=== PATIENT | female | born 1945 | race African-American/Black ===

== ENCOUNTER 2016-07-30 10:33 | Emergency (ER) | payer MEDICARE, BC ==
[2016-07-30] MEDS ORDERED: Sodium Chloride 0.9% 1,000 ML ONE (11:08)
--- NOTE | 2016-07-30 11:12 | PICIS ---
[facility] EMERGENCY RECORD ADMIN MERGE: Ambulance SatJul 30, 2016 10:29. (11:23 REZE) TRIAGE (10:37 GHIA) TRIAGE NOTES: Pt "felt like sugar was low...so took OJ and added sugar"...gluc 264 by EMs. (10:37 GHIA) PATIENT: NAME: Pradip Giraldo, AGE: 71, GENDER: female, : Sat1945, TIME OF GREET: SatJul 30, 2016 10:34, PREFERRED LANGUAGE: Eritrean, ETHNICITY: Not or , ECODE BILLING MAP: [facility], SSN: [id number], Zip Code: [address], PHONE: , , , PERSON ID: [id number]. (10:37 GHIA) KG WEIGHT: 77.11. (15:18 GHIA) COMPLAINT: WEAKNESS/SWEATING. (10:37 GHIA) ADMISSION: URGENCY: 3 Urgent, ADMISSION SOURCE: Home, TRANSPORT: AMBULANCE - [facility], BED: TRIAGE. (10:37 GHIA) ASSESSMENT: Assessment: Pt felt BS was low....pt took OJ with added sugar before EMS arrived...gluc 264. (10:46 GHIA) PAIN: Patient complains of pain described as, Location center abd, Pain is constant. (10:46 GHIA) IMMUNIZATIONS: Flu vaccine up to date, Tetanus not up to date, Pneumococcal vaccine up to date. (10:46 GHIA) SIRS SCORING: Heart Rate 55-109 (0), Temp range 96.8-101.1 (0), respiratory rate 12-24 (0). (10:46 GHIA) TRIAGE SCREENING: Patient denies suicidal ideation, Patient denies presence of domestic violence. (10:46 GHIA) LMP: LMP: Menopause. (10:46 GHIA) TREATMENTS IN PROGRESS: See EMS Record, Treatments given Prehospital: no meds by EMS. (10:46 GHIA) PROVIDERS: TRIAGE NURSE: Saadia Garrett RN. (10:37 GHIA) VITAL SIGNS: BP 159/73, Pulse 73, Resp 17, Temp 98.0, (Oral), Pain 5, O2 Sat 98, on Room Air, Time 07/30/2016 10:38. (10:38 GHIA) PREVIOUS VISIT ALLERGIES: No Known Drug Allergies. (10:37 GHIA) No Known Drug Allergies. (10:46 GHIA) KNOWN ALLERGIES No Known Drug Allergies CURRENT MEDICATIONS No recorded medications VITAL SIGNS VITAL SIGNS: BP: 159/73, Pulse: 73, Resp: 17, Temp: 98.0 (Oral), Pain: 5, O2 sat: 98 on Room Air, Time: 07/30/2016 10:38. (10:38 GHIA) BP: 138/51, Pulse: 78, Resp: 18, Pain: 5, O2 sat: 93 on RA, Time: 07/30/2016 10:52. (10:52 GHIA) O2 sat: 87 on RA, Time: 07/30/2016 10:50. (10:50 GHIA) O2 sat: 89 on 4LNC, Time: 07/30/2016 11:10. (11:10 GHIA) O2 sat: 93 on NRM, Time: 07/30/2016 11:33. (11:33 GHIA) BP: 148/67, Pulse: 79, Resp: 17, Pain: 0, O2 sat: 95 on 4LNC, Time: &a-1R&a+25V*p+0X*j1423F*c202B*c15G*c2P*p-0X&a-25V&a+1R Name: Pradip Giraldo : 1945 F71 MedRec: [id number] AcctNum: [id number] Prepared: SatJul 30, 2016 17:18 by Interface Page 1 of 11 pMD [facility] EMERGENCY RECORD 07/30/2016 11:44. (11:44 GHIA) Pulse: 80, Resp: 18, Pain: 0, O2 sat: 95 on 4LNC, Time: 07/30/2016 11:57. (11:57 GHIA) BP: 156/74, Pulse: 86, Resp: 18, Pain: 0, O2 sat: 94 on Room Air, Time: 07/30/2016 16:00. (16:00 GHIA) BP: 159/75, Pulse: 83, Resp: 17, Pain: 0, O2 sat: 94 on Room Air, Time: 07/30/2016 15:00. (15:00 GHIA) BP: 149/70, Pulse: 86, Resp: 17, Pain: 0, O2 sat: 97 on Room Air, Time: 07/30/2016 14:00. (14:00 GHIA) BP: 161/72, Pulse: 84, Resp: 18, Pain: 0, O2 sat: 98 on Room Air, Time: 07/30/2016 13:00. (13:00 GHIA) BP: 148/75, Pulse: 84, Resp: 18, Temp: 98.4, Pain: .0, O2 sat: 95 on 4LNC, Time: 07/30/2016 16:45. (16:45 GHIA) NURSING ASSESSMENT: HEAD-TO-TOE (10:47 GHIA) CONSTITUTIONAL: Patient arrives, via stretcher, via Emergency Medical Services, History obtained from patient, Patient appears comfortable, Patient cooperative, Patient alert, Oriented to person, place and time, Skin warm, Skin dry, Skin normal in color, Mucous membranes pink, Mucous membranes moist, Patient is well-groomed, Patient complains of Weakness/sweating, Pt in room in bed in gown. Assess. Plan of care of pt in ER discussed. PAIN: aching pain, all over abd "just feels like I need to have BM, Onset of pain one hour ago, constant, on a scale 0-10 patient rates pain as 5. SKIN: Skin assessment findings include skin warm, Skin dry, Skin normal in color, Notes: intact. RESPIRATORY/CHEST: Respiratory assessment findings include respiratory effort easy. CARDIOVASCULAR: Cardiovascular assessment findings include heart rate normal. ABDOMEN: Abdomen assessment findings include abdomen symmetrical, no associated nausea, no associated vomiting, no associated diarrhea, no associated constipation. GENITOURINARY FEMALE: no associated urinary complaints. NOTES: Emotional support needed and given, Patient tolerated procedure well. SAFETY: Side rails up, Cart/Stretcher in lowest position, Family at bedside, Call light within reach, Hospital ID band on. NURSING PROCEDURE: BEDSIDE TESTING PATIENT IDENTIFIER: Patient actively involved in identification process, Patient's identity verified by patient stating name, Patient's identity verified by hospital ID brapeeweeet. (10:45 GHIA) Patient actively involved in identification process, Patient's identity verified by patient stating name, Patient's identity verified by hospital ID bracelet. (16:20 GHIA) GLUCOSE: Glucose testing indicated for diabetic patient, Capillary blood sample, Result (mg/dl) 245. (10:45 GHIA) Glucose testing indicated for diabetic patient, Capillary blood sample, &a-1R&a+25V*p+0X*y9602B*c202B*c15G*c2P*p-0X&a-25V&a+1R Name: Pradip Giraldo : 1945 F71 MedRec: [id number] AcctNum: [id number] Prepared: SatJul 30, 2016 17:18 by Interface Page 2 of 11 pMD [facility] EMERGENCY RECORD Result (mg/dl) 289. (16:20 GHIA) FOLLOW-UP: After procedure, results given to Dr. Lam. (10:45 GHIA) SAFETY: Side rails up, Cart/Stretcher in lowest position, Family at bedside, Call light within reach, Hospital ID band on. (10:45 GHIA) Side rails up, Cart/Stretcher in lowest position, Family at bedside, Call light within reach, Hospital ID band on. (16:20 GHIA) NURSING PROCEDURE: ANY COMMODITY BUYER (11:07 [facility]) ANY COMMODITY BUYER: Cardiac monitoring indicated for mental status changes, Patient placed on quality assurance monitor body, Patient placed on non-invasive blood pressure monitor, Patient placed on continuous pulse oximetry. FOLLOW-UP: After procedure, alarms set and on, After procedure, patient tolerating monitoring. SAFETY: Side rails up, Cart/Stretcher in lowest position, Family at bedside, Call light within reach, Hospital ID band on. NURSING PROCEDURE: NURSE NOTES NURSES NOTES: Notes: Er Dr at bedside. (10:52 GHIA) Notes: coworker attempting Iv. (11:10 GHIA) Notes: SAt down O2 applied. (10:50 GHIA) Notes: Sat still low O2 changed to non rebreather. (11:10 GHIA) Notes: Er Dr at bedside ; Dr aware of low O2 sat. (11:33 GHIA) Patient in no apparent distress, Assistance offered to patient, Patient is awaiting results, Notes: Pt resting ; no c/o. So x 1 at bedside. (11:44 GHIA) Patient in no apparent distress, Assistance offered to patient, Patient is awaiting results. (11:57 GHIA) Notes: pt and So notified of need to transfer pt Pt and So request to go to [facility] 'where my Dr is at'. house Sup notified (Maribeth). (12:51 GHIA) Patient in no apparent distress, Assistance offered to patient, Patient is awaiting disposition, Notes: Pt cheerful. Munir Stahl working on paperwork. (14:00 GHIA) Patient in no apparent distress, Assistance offered to patient, Patient is awaiting disposition, Notes: No c/o. Maribeth Rn working on discharge. (15:08 GHIA) Notes: Pt states she only weighs 170lbs....lovenox dose verified with Shyanne KUMAR prior to giving to pt. (15:18 GHIA) Patient in no apparent distress, Assistance offered to patient, Patient is awaiting results, Notes: Time spent talking with pt and answering questions. (15:25 GHIA) Patient in no apparent distress, Assistance offered to patient, Patient is awaiting disposition, Notes: Glucose checked = 289. Pt alert and appropriate...waiting on transport. (16:21 GHIA) Notes: EMS here for transport; Report given to [facility] staff. (16:40 GHIA) VITAL SIGNS: BP: 138, / 51, Pulse: 78, Resp: 18, Pain: 5, O2 sat: &a-1R&a+25V*p+0X*k8179C*c202B*c15G*c2P*p-0X&a-25V&a+1R Name: Pradip Giraldo : 1945 F71 MedRec: [id number] AcctNum: [id number] Prepared: SatJul 30, 2016 17:18 by Interface Page 3 of 11 pMD [facility] EMERGENCY RECORD 93, on: RA. (10:52 GHIA) O2 sat: 87, on: RA. (10:50 GHIA) O2 sat: 89, on: 4LNC. (11:10 GHIA) O2 sat: 93, on: NRM. (11:33 GHIA) BP: 148, / 67, Pulse: 79, Resp: 17, Pain: 0, O2 sat: 95, on: 4LNC. (11:44 GHIA) Pulse: 80, Resp: 18, Pain: 0, O2 sat: 95, on: 4LNC. (11:57 GHIA) NURSING PROCEDURE: TRANSFER (16:45 GHIA) TRANSFER: Reason for transfer, insurance/pt request, Diagnosis: PE, Transported by urgent ambulance, accompanied by emergency medical services personnel, Report called to receiving facility, Anna KUMAR, Provided opportunity to answer questions, Report given with emphasis on pts correct weight of 77 kg and lovenox given at 1524. BELONGINGS: Belongings remain with patient, Valuables remain with patient. NOTES: Patient tolerated procedure well. SAFETY: Notes: Pt alert and cheerful. Pt refuses to urinate before transport. VITAL SIGNS: BP: 148, / 75, Pulse: 84, Resp: 18, Temp: 98.4, Pain: .0, O2 sat: 95, on: 4LNC. ORDER DETAILS Order Name: B type Natriuretic Peptide, Status: Active, Time: 11:00 07/30/2016, User: MONI, - Ordered for: MD Lam Joshua, - Entered by: MD Lam Joshua - [facility] Jul 30, 2016 11:00, - Quantity: 1, Order Name: BLOOD GLUCOSE MONITOR, Status: Done, Time: 10:55 07/30/2016, User: SABRINA, - Ordered for: MD Lam Joshua, - Entered by: STACY Garrett Geraldine - [facility] Jul 30, 2016 10:55, - Quantity: 1, Order Name: ANY COMMODITY BUYER ED, Status: Done, Time: 11:06 07/30/2016, User: [facility], - Ordered for: MD Lam Joshua, - Entered by: MD Lam Joshua - [facility] Jul 30, 2016 11:00, - Quantity: 1, Order Name: Cardiac Profile w/CKMB & Troponin - I, Status: Active, Time: 11:00 07/30/2016, User: MONI, - Ordered for: MD Lam Joshua, - Entered by: MD Lam Joshua - [facility] Jul 30, 2016 11:00, - Quantity: 1, Order Name: CBC with Differential, Status: Active, Time: 11:00 07/30/2016, User: MONI, - Ordered for: MD Lam Joshua, - Entered by: MD Lam Joshua - [facility] Jul 30, 2016 11:00, - Quantity: 1, &a-1R&a+25V*p+0X*c1778K*c202B*c15G*c2P*p-0X&a-25V&a+1R Name: Pradip Giraldo : 1945 F71 MedRec: [id number] AcctNum: [id number] Prepared: SatJul 30, 2016 17:18 by Interface Page 4 of 11 [facility] EMERGENCY RECORD Order Name: CK (CPK), Status: Active, Time: 11:00 07/30/2016, User: MONI, - Ordered for: MD Lam Joshua, - Entered by: MD Lam Joshua - [facility] Jul 30, 2016 11:00, - Quantity: 1, Order Name: Comprehensive Metabolic Panel, Status: Active, Time: 11:00 07/30/2016, User: MONI, - Ordered for: MD Lam Joshua, - Entered by: MD Lam Joshua - [facility] Jul 30, 2016 11:00, - Quantity: 1, Order Name: CTA Angio Chest W WO Con(PE Protocol), Status: Canceled, Time: 12:55 07/30/2016, User: System, - Ordered for: MD Lam Joshua, - Entered by: MD Lam Joshua - [facility] Jul 30, 2016 12:18, - Quantity: 1, Order Name: D-Dimer (Quantitative), Status: Active, Time: 11:05 07/30/2016, User: MONI, - Ordered for: MD Lam Joshua, - Entered by: MD Lam Joshua - [facility] Jul 30, 2016 11:05, - Quantity: 1, Order Name: EKG 12 Lead in Emergency Room, Status: Active, Time: 11:00 07/30/2016, User: MONI, - Ordered for: MD Lam Joshua, - Entered by: MD Lam Joshua - [facility] Jul 30, 2016 11:00, - Quantity: 1, Order Name: Lipase, Status: Active, Time: 11:00 07/30/2016, User: MONI, - Ordered for: MD Lam Joshua, - Entered by: MD Lam Joshua - Mon Jul 30, 2016 11:00, - Quantity: 1, Order Name: SALINE LOCK, Status: Done, Time: 11:24 07/30/2016, User: SBARINA, - Ordered for: MD Lam Joshua, - Entered by: MD Lam Joshua - [facility] Jul 30, 2016 11:00, - Quantity: 1, Order Name: Urinalysis w/ Rflx Microscopic, Status: Active, Time: 11:00 07/30/2016, User: MONI, - Ordered for: MD Lam Joshua, - Entered by: MD Lam Joshua - Mon Jul 30, 2016 11:00, - Quantity: 1, Order Name: XR Chest 1 View Portable, Status: Active, Time: 11:00 07/30/2016, User: MONI, - Ordered for: MD Lam Joshua, - Entered by: MD Lam Joshua - Mon Jul 30, 2016 11:00, - Quantity: 1. MEDICATION ADMINISTRATION SUMMARY Drug Name: Lovenox, Dose Ordered: 1 mg/kg, Route: Subcutaneous, Status: Given, Time: 15:24 07/30/2016, Drug Name: *sodium chloride 0.9 % intravenous, Dose Ordered: 500 mL, &a-1R&a+25V*p+0X*n7787Q*c202B*c15G*c2P*p-0X&a-25V&a+1R Name: Enzo Pradip Avery : 1945 F71 MedRec: [id number] AcctNum: [id number] Prepared: SatJul 30, 2016 17:18 by Interface Page 5 of 11 pMD [facility] EMERGENCY RECORD Route: IV Fluid Infusion, Status: Given, Time: 11:31 07/30/2016, *Additional information available in notes, Detailed record available in Medication Service section. MEDICATION SERVICE Lovenox: Order: Lovenox (enoxaparin sodium) - Dose: 1 mg/kg : Subcutaneous Ordered by: Tony Lam MD Entered by: Tony Lam MD SatJul 30, 2016 15:01 , Acknowledged by: Saadia Garrett RN SatJul 30, 2016 15:08 Documented as given by: Saadia Garrett RN SatJul 30, 2016 15:24 Patient, Medication, Dose, Route and Time verified prior to administration. Amount given: 1 mg/kg, Medication administered to left abdomen, Correct patient, time, route, dose and medication confirmed prior to administration, Patient advised of actions and side-effects prior to administration, Allergies confirmed and medications reviewed prior to administration, Emotional support needed and given, Patient tolerated procedure well, Advised not to ambulate without assistance, Patient in position of comfort, Side rails up, Cart in lowest position, Family at bedside, Call light in reach, dose verified with Shyanne KUMAR prior to med given. sodium chloride 0.9 % intravenous: Order: sodium chloride 0.9 % intravenous (0.9 % sodium chloride) - Dose: 500 mL : IV Fluid Infusion Notes: (Bolus) Ordered by: Tony Lam MD Entered by: Tony Lam MD SatJul 30, 2016 11:01 Documented as given by: Shyanne Cao RN SatJul 30, 2016 11:31 Patient, Medication, Dose, Route and Time verified prior to administration. Amount given: 500 mL, IV SITE #1 IV fluids established for hydration, IV SITE #1 into right forearm, IV SITE #1 1st bag hung, amount 500ml hung, via primary tubing, Catheter placement confirmed via flush prior to administration, IV site without signs or symptoms of infiltration during medication administration, No swelling during administration, No drainage during administration, IV flushed after administration, Correct patient, time, route, dose and medication confirmed prior to administration, Patient advised of actions and side-effects prior to administration, Allergies confirmed and medications reviewed prior to administration, Patient tolerated procedure well, Administered by STACY Kimble, Patient in position of comfort, Side rails up, Cart in lowest position, Family at bedside, Call light in reach. : Follow Up : Response assessment performed, No signs or symptoms of allergic reaction noted, Site inspection shows, No swelling at administration site, No drainage at administration site, No bleeding at site, No bruising noted at site, _IV SITE #1:_, IV fluid infusion discontinued, on SatJul 30, 2016 12:00, 30 minutes, ., Total amount infused: 500 mL. (12:00 [facility]) &a-1R&a+25V*p+0X*n8421C*c202B*c15G*c2P*p-0X&a-25V&a+1R Name: Pradip Giraldo : 1945 F71 MedRec: [id number] AcctNum: [id number] Prepared: SatJul 30, 2016 17:18 by Interface Page 6 of 11 pMD [facility] EMERGENCY RECORD HPI WEAK-DIZZY (11:01 SUBHA) CHIEF COMPLAINT: Patient presents for evaluation of weakness, Patient presents for evaluation of dizziness, Patient presents for evaluation of lightheadedness, Patient presents for evaluation of Pt with onset of weakness, dizziness, and feeling like she might pass out. Pt reports it felt like her sugar was low so she ate some sugar and then ate some crackers. Only slight help so called the ambulance. Started 2 hours ago. EMS checked her glucose and it was 264. Only other symptoms is some abd fullness 'like I need to have a BM'. HISTORIAN: History provided by patient. LOCATION: No localizing symptoms. QUALITY: Symptoms described as, generalized weakness, Patient is alert and oriented to person, place and time, [place] coma score is 15. TIME COURSE: Sudden onset of symptoms, Symptoms are improving, are constant. ASSOCIATED WITH: No associated ataxia, No associated chest pain, No associated chills, No associated fever, No associated headache, No associated nausea, No associated vomiting, No associated visual changes, No associated upper respiratory infection. EXACERBATED BY: Patient's condition exacerbated by nothing. RELIEVED BY: Patient's condition relieved by time. ROS (11:03 [facility]) CONSTITUTIONAL: Historian denies chills, denies fever. EYES: Historian denies eye pain, denies eye redness, denies eye discharge. ENT: Historian denies rhinorrhea, denies sore throat. CARDIOVASCULAR: Historian denies chest pain. RESPIRATORY: Historian denies cough, denies shortness of breath, denies sputum. GI: Historian denies abdominal pain, denies constipation, denies diarrhea, denies nausea, denies vomiting. GENITOURINARY FEMALE: Historian denies dysuria, denies frequency, denies hematuria. MUSCULOSKELETAL: Historian denies arthralgias, denies back pain, denies myalgias. SKIN: Historian denies rash, denies skin changes. NEUROLOGIC: Historian reports dizziness, denies headache, denies paralysis, denies paresthesias, denies sensory changes. improved. PAST MEDICAL HISTORY MEDICAL HISTORY: Notes: as lsited, Flu vaccine up to date, Tetanus not up to date, Pneumococcal vaccine up to date, Date of immunization: 06/24/13, Flu vaccine up to date, Tetanus not up to date, Past medical history includes history of diabetes, Type II, Past medical history includes history of hypertension. Gout, Arthritis. (10:46 [facility]) &a-1R&a+25V*p+0X*b4569W*c202B*c15G*c2P*p-0X&a-25V&a+1R Name: Pradip Giraldo : 1945 F71 MedRec: [id number] AcctNum: [id number] Prepared: SatJul 30, 2016 17:18 by Interface Page 7 of 11 [facility] EMERGENCY RECORD FEMALE SURGICAL HISTORY: Patient has no surgical history, Patient has no surgical history. (10:46 [facility]) PSYCHIATRIC HISTORY: No previous psychiatric history. (10:46 [place]) SOCIAL HISTORY: Social History includes lives alone, Patient denies alcohol use, Patient denies drug use, Patient has no smoking history. (10:46 [facility]) NOTES: Nursing records reviewed, Agree with nursing records. (11:04 [facility]) PHYSICAL EXAM (11:04 [facility]) CONSTITUTIONAL: Vital signs reviewed, Patient appears non toxic, Patient alert and oriented to person, place and time. HEAD: Head exam included findings of head atraumatic, normocephalic. EYES: Eye exam included findings of eyelids normal to inspection, Pupils equally round and reactive to light, Conjunctiva normal. ENT: Pharynx exam normal, Uvula exam normal, Tonsil exam normal, Mouth exam included findings of, mucous membranes dry. NECK: Neck exam included findings of normal range of motion, Trachea midline, no jugular venous distention, no cervical adenopathy. RESPIRATORY CHEST: Respiratory exam included findings of no respiratory distress, Breath sounds clear, No wheezing, No rales, No rhonchi, Chest exam included findings of chest movement symmetrical. CARDIOVASCULAR: Cardiovascular exam included findings of heart rate regular rate and rhythm, Heart sounds normal. ABDOMEN FEMALE: Abdominal exam included findings of abdomen nontender, Bowel sounds normal. BACK: Back exam included findings of normal inspection, range of motion normal. UPPER EXTREMITY: Upper extremity exam included findings of inspection normal, Radial pulse normal, no cyanosis, no clubbing, no edema. LOWER EXTREMITY: Lower extremity exam included findings of inspection normal, Pedal pulse normal, no edema, no calf tenderness. NEURO: [place] coma scale 15, Neuro exam findings include patient oriented to person, place and time, Speech normal. SKIN: Skin exam included findings of skin warm, dry, and normal in color, no rash. PSYCHIATRIC: Normal affect. EVENTS TRANSFER: Triage to Emergency Triage. (SatJul 30, 2016 10:37 [place]) Emergency Triage to Emergency Room -02. (10:46 IA) Removed from Emergency Emergency Room -02. (17:03 [place]) DOCTOR NOTES (16:06 [facility]) TEXT: Dr. Arreguin accepted the transfer to [facility] [employer] &a-1R&a+25V*p+0X*e6771C*c202B*c15G*c2P*p-0X&a-25V&a+1R Name: Pradip Giraldo : 1945 F71 MedRec: [id number] AcctNum: [id number] Prepared: SatJul 30, 2016 17:18 by Interface Page 8 of 11 [facility] EMERGENCY RECORD Station. PROBLEM LIST No recorded problems DIAGNOSIS (16:07 [facility]) FINAL: PRIMARY: Pulmonary embolism (PE) without cor pulmonale. DISPOSITION PATIENT: Disposition Type: Transfer, Disposition: [employer]. (16:07 [facility]) Patient left the department. (17:03 [place]) PRESCRIPTION No recorded prescriptions IMAGING *EKG: Image captured from scanner. (12:24 REZE) *MEMORANDUM OF TRANSFER: Image captured from scanner. (16:27 REZE) CONSENTS: Image captured from scanner. (16:27 REZE) ADMIN DIGITAL SIGNATURE: MD Lam Joshua. (11:05 [facility]) MD Lam Joshua. (16:08 [facility]) RESULTS (14:35 RE) RADIOLOGY: XR Chest 1 View Portable Observe DT: SatJul 30, 2016 11:02, CXRP PORTABLE AP CHEST XRAY: DATE: 07/30/16. HISTORY: Altered mental status. COMPARISON: 04/24/13. FINDINGS: The cardiac silhouette and bronchovascular markings are accentuated by the shallow depth of inspirat ion and portable technique of the exam. The lungs are clear. There has been no interval change fro m the prior exam. IMPRESSION: No acute cardiopulmonary process. &a-1R&a+25V*p+0X*l6721O*c202B*c15G*c2P*p-0X&a-25V&a+1R Name: Pradip Giraldo : 1945 F71 MedRec: [id number] AcctNum: [id number] Prepared: SatJul 30, 2016 17:18 by Interface Page 9 of 11 pMD [facility] EMERGENCY RECORD POS: [facility] . LABORATORY: Lipase Collection DT: SatJul 30, 2016 11:32, *Lipase 86 - H U/L, Range (8-78). CK (CPK) Collection DT: SatJul 30, 2016 11:32, *CK (CPK) 292 - H U/L, Range (29-168). Comprehensive Metabolic Panel Collection DT: SatJul 30, 2016 11:32, *Sodium 135 - L mmol/L, Range (136-145), Potassium 4.0 mmol/L, Range (3.5-5.1), Chloride 99 mmol/L, Range (98-107), *Carbon Dioxide 21 - L mmol/L, Range (23-31), Anion Gap 19 mmol/L, Range (10-20), *BUN (Urea Nitrogen) 31 - H mg/dL, Range (9.8-20.1), *Creatinine 1.79 - H mg/dL, Range (0.6-1.1), Estimated GFR-MDRD 34 , Reference Range for Estimated GFR: Greater than 90, mL/min/1.73 m2 NOTE: The MDRD equation has not been validated for use, with the elderly (over 70 years of age), women, patients with, serious comorbid condition or persons with extremes of body size, muscle, mass, or nutritional status. , *Glucose 301 - H mg/dL, Range (83-110), Calcium 9.4 mg/dL, Range (7.8-10.44), Bilirubin, Total 0.3 mg/dL, Range (0.2-1.2), *Protein, Total 8.3 - H g/dL, Range (5.8-8.1), NOTE: Plasma values are generally 0.3 to 0.5 g/dL higher than serum values, due to the presence of fibrinogen. , *Albumin 3.2 - L g/dL, Range (3.4-4.8), *Globulin 5.1 - H g/dL, Range (2.4-3.5), *Alb/Glob Ratio 0.6 - L g/dL, Range (1.2-2.2), Alkaline Phosphatase 67 U/L, Range (40-150), AST (SGOT) 28 U/L, Range (5-34), ALT (SGPT) 19 U/L, Range (0-55). D-Dimer (Quantitative) Collection DT: SatJul 30, 2016 11:32, *D-Dimer Test 16.81 - H *mcg/mL, Range (0.27-0.43), * Reference Range Units: mcg/mL of fibrinogen equivalent, units(FEU) Based upon a retrospective study of [facility] patients in October 2005, a result of Less than 0.44 mcg/mL FEU is, predictive of the absence of a DVT or PE. . Cardiac Profile w/CKMB & TropI Collection DT: SatJul 30, 2016 11:32, CKMB 3.3 ng/mL, Range (0-6.6), *Troponin I 0.118 - H ng/mL, Range (< 0.028), Reference Range &a-1R&a+25V*p+0X*[id number]*c202B*c15G*c2P*p-0X&a-25V&a+1R Name: Pradip Giraldo : 1945 F71 MedRec: [id number] AcctNum: [id number] Prepared: SatJul 30, 2016 17:18 by Interface Page 10 of 11 pMD [facility] EMERGENCY RECORD , 0.00 - 0.028 ng/mL Negative 0.029 - 0.29 ng/mL , Indeterminate Greater or Equal to 0.3 ng/mL Strongly suggests [place] , . B type Natriuretic Peptide Collection DT: SatJul 30, 2016 11:32, B type Natriuretic Peptide 37.7 pg/mL, Range (0-100). CBC with Differential Collection DT: SatJul 30, 2016 11:32, White Blood Cell (WBC) Count 8.0 thou/uL, Range (4.8-10.8), Red Blood Cell (RBC) Count 4.94 mill/uL, Range (4.20-5.40), Hemoglobin 13.3 g/dL, Range (12.0-16.0), Hematocrit 42.8 %, Range (36.0-47.0), Mean Corpuscular Volume 86.6 fl, Range (81.0-99.0), *Mean Corpuscular Hemoglobin 26.9 - L pg, Range (27.0-31.0), *Mean Corpuscular HGB CONC 31.0 - L g/dL, Range (32.0-36.0), RBC Distribution Width 12.8 %, Range (11.5-14.5), Platelet Count 193 thou/uL, Range (130-400), Mean Platelet Volume 7.4 fL, Range (7.4-10.4), *%Neutrophils 76.4 - H %, Range (42.0-75.0), *%Lymphocytes 16.7 - L %, Range (21.0-51.0), %Monocytes 4.6 %, Range (0.0-10.0), %Eosinophils 1.6 %, Range (0.0-10.0), %Basophils 0.8 %, Range (0.0-1.0), #Neutrophils 6.1 thou/uL, Range (1.40-6.50), #Lymphocytes 1.3 thou/uL, Range (1.20-3.40), #Monocytes 0.4 thou/uL, Range (0.11-0.59), #Eosinphils 0.1 thou/uL, Range (0.0-0.7), #Basophils 0.1 thou/uL, Range (0.0-0.2). Accuchek Collection DT: SatJul 30, 2016 11:00, *Accuchek 245 - H mg/dL, Range (70-110). Diaz: SABRINA=STACY Garrett, Saadia MONTENEGRO=MD Genaro, Tony HOFFMAN=STACY Rivera, Maribeth [facility]=STACY Cao, Shyanne &a-1R&a+25V*p+0X*[id number]*c202B*c15G*c2P*p-0X&a-25V&a+1R Name: Pradip Giraldo : 1945 F71 MedRec: [id number] AcctNum: [id number] Prepared: SatJul 30, 2016 17:18 by Interface Page 11 of 11 pMD MTDD
--- NOTE | 2016-07-30 11:12 | ERRECORD ---
[facility] EMERGENCY RECORD ADMIN (11:23 BENJA) MERGE: Ambulance Mon Jul 30, 2016 10:29. HPI WEAK-DIZZY (11:01 [facility]) CHIEF COMPLAINT: Patient presents for evaluation of weakness, Patient presents for evaluation of dizziness, Patient presents for evaluation of lightheadedness, Patient presents for evaluation of Pt with onset of weakness, dizziness, and feeling like she might pass out. Pt reports it felt like her sugar was low so she ate some sugar and then ate some crackers. Only slight help so called the ambulance. Started 2 hours ago. EMS checked her glucose and it was 264. Only other symptoms is some abd fullness 'like I need to have a BM'. HISTORIAN: History provided by patient. LOCATION: No localizing symptoms. QUALITY: Symptoms described as, generalized weakness, Patient is alert and oriented to person, place and time, [place] coma score is 15. TIME COURSE: Sudden onset of symptoms, Symptoms are improving, are constant. ASSOCIATED WITH: No associated ataxia, No associated chest pain, No associated chills, No associated fever, No associated headache, No associated nausea, No associated vomiting, No associated visual changes, No associated upper respiratory infection. EXACERBATED BY: Patient's condition exacerbated by nothing. RELIEVED BY: Patient's condition relieved by time. ROS (11:03 [facility]) CONSTITUTIONAL: Historian denies chills, denies fever. EYES: Historian denies eye pain, denies eye redness, denies eye discharge. ENT: Historian denies rhinorrhea, denies sore throat. CARDIOVASCULAR: Historian denies chest pain. RESPIRATORY: Historian denies cough, denies shortness of breath, denies sputum. GI: Historian denies abdominal pain, denies constipation, denies diarrhea, denies nausea, denies vomiting. GENITOURINARY FEMALE: Historian denies dysuria, denies frequency, denies hematuria. MUSCULOSKELETAL: Historian denies arthralgias, denies back pain, denies myalgias. SKIN: Historian denies rash, denies skin changes. NEUROLOGIC: Historian reports dizziness, denies headache, denies paralysis, denies paresthesias, denies sensory changes. improved. PAST MEDICAL HISTORY MEDICAL HISTORY: Notes: as lsited, Flu vaccine up to date, Tetanus not up to date, Pneumococcal vaccine up to date, Date of immunization: 06/24/13, Flu vaccine up to date, Tetanus not up to date, Past medical history includes history of diabetes, Type &a-1R&a+25V*p+0X*[id number]*c202B*c15G*c2P*p-0X&a-25V&a+1R Name: Pradip Giraldo : 1945 F71 MedRec: [id number] AcctNum: [id number] Prepared: SatJul 30, 2016 17:12 by Interface Page 1 of 4 pMD [facility] EMERGENCY RECORD II, Past medical history includes history of hypertension. Gout, Arthritis. (10:46 [facility]) FEMALE SURGICAL HISTORY: Patient has no surgical history, Patient has no surgical history. (10:46 [facility]) PSYCHIATRIC HISTORY: No previous psychiatric history. (10:46 [facility]) SOCIAL HISTORY: Social History includes lives alone, Patient denies alcohol use, Patient denies drug use, Patient has no smoking history. (10:46 [facility]) NOTES: Nursing records reviewed, Agree with nursing records. (11:04 [facility]) KNOWN ALLERGIES No Known Drug Allergies CURRENT MEDICATIONS No recorded medications VITAL SIGNS VITAL SIGNS: BP: 159/73, Pulse: 73, Resp: 17, Temp: 98.0 (Oral), Pain: 5, O2 sat: 98 on Room Air, Time: 07/30/2016 10:38. (10:38 GHIA) BP: 138/51, Pulse: 78, Resp: 18, Pain: 5, O2 sat: 93 on RA, Time: 07/30/2016 10:52. (10:52 [facility]) O2 sat: 87 on RA, Time: 07/30/2016 10:50. (10:50 [facility]) O2 sat: 89 on 4LNC, Time: 07/30/2016 11:10. (11:10 [facility]) O2 sat: 93 on NRM, Time: 07/30/2016 11:33. (11:33 [facility]) BP: 148/67, Pulse: 79, Resp: 17, Pain: 0, O2 sat: 95 on 4LNC, Time: 07/30/2016 11:44. (11:44 [facility]) Pulse: 80, Resp: 18, Pain: 0, O2 sat: 95 on 4LNC, Time: 07/30/2016 11:57. (11:57 [facility]) BP: 156/74, Pulse: 86, Resp: 18, Pain: 0, O2 sat: 94 on Room Air, Time: 07/30/2016 16:00. (16:00 [facility]IA) BP: 159/75, Pulse: 83, Resp: 17, Pain: 0, O2 sat: 94 on Room Air, Time: 07/30/2016 15:00. (15:00 [facility]) BP: 149/70, Pulse: 86, Resp: 17, Pain: 0, O2 sat: 97 on Room Air, Time: 07/30/2016 14:00. (14:00 [facility]) BP: 161/72, Pulse: 84, Resp: 18, Pain: 0, O2 sat: 98 on Room Air, Time: 07/30/2016 13:00. (13:00 [facility]) BP: 148/75, Pulse: 84, Resp: 18, Temp: 98.4, Pain: .0, O2 sat: 95 on 4LNC, Time: 07/30/2016 16:45. (16:45 [facility]) PHYSICAL EXAM (11:04 [facility]) CONSTITUTIONAL: Vital signs reviewed, Patient appears non toxic, Patient alert and oriented to person, place and time. HEAD: Head exam included findings of head atraumatic, normocephalic. EYES: Eye exam included findings of eyelids normal to inspection, Pupils equally round and reactive to light, Conjunctiva normal. ENT: Pharynx exam normal, Uvula exam normal, Tonsil exam normal, Mouth exam included findings of, mucous membranes dry. &a-1R&a+25V*p+0X*[id number]*c202B*c15G*c2P*p-0X&a-25V&a+1R Name: Pradip Giraldo : 1945 F71 MedRec: [id number] AcctNum: [id number] Prepared: SatJul 30, 2016 17:12 by Interface Page 2 of 4 pMD [facility] EMERGENCY RECORD NECK: Neck exam included findings of normal range of motion, Trachea midline, no jugular venous distention, no cervical adenopathy. RESPIRATORY CHEST: Respiratory exam included findings of no respiratory distress, Breath sounds clear, No wheezing, No rales, No rhonchi, Chest exam included findings of chest movement symmetrical. CARDIOVASCULAR: Cardiovascular exam included findings of heart rate regular rate and rhythm, Heart sounds normal. ABDOMEN FEMALE: Abdominal exam included findings of abdomen nontender, Bowel sounds normal. BACK: Back exam included findings of normal inspection, range of motion normal. UPPER EXTREMITY: Upper extremity exam included findings of inspection normal, Radial pulse normal, no cyanosis, no clubbing, no edema. LOWER EXTREMITY: Lower extremity exam included findings of inspection normal, Pedal pulse normal, no edema, no calf tenderness. NEURO: [place] coma scale 15, Neuro exam findings include patient oriented to person, place and time, Speech normal. SKIN: Skin exam included findings of skin warm, dry, and normal in color, no rash. PSYCHIATRIC: Normal affect. MEDICATION ADMINISTRATION SUMMARY Drug Name: Lovenox, Dose Ordered: 1 mg/kg, Route: Subcutaneous, Status: Given, Time: 15:24 07/30/2016, Drug Name: *sodium chloride 0.9 % intravenous, Dose Ordered: 500 mL, Route: IV Fluid Infusion, Status: Given, Time: 11:31 07/30/2016, *Additional information available in notes, Detailed record available in Medication Service section. DOCTOR NOTES (16:06 MONI) TEXT: Dr. Arreguin accepted the transfer to [facility] in [place]. PROBLEM LIST No recorded problems DIAGNOSIS (16:07 MONI) FINAL: PRIMARY: Pulmonary embolism (PE) without cor pulmonale. PRESCRIPTION No recorded prescriptions DISPOSITION PATIENT: Disposition Type: Transfer, Disposition: [facility]. (16:07 MONI) Patient left the department. (17:03 SABRINA) &a-1R&a+25V*p+0X*[id number]*c202B*c15G*c2P*p-0X&a-25V&a+1R Name: Pradip Giraldo : 1945 F71 MedRec: [id number] AcctNum: [id number] Prepared: SatJul 30, 2016 17:12 by Interface Page 3 of 4 pMD [facility] EMERGENCY RECORD Diaz: SABRINA=STACY Garrett, Saadia MONTENEGRO=MD Genaro, Tony HOFFMAN=STACY Rivera, Maribeth &a-1R&a+25V*p+0X*[id number]*c202B*c15G*c2P*p-0X&a-25V&a+1R Name: Pradip Giraldo : 1945 F71 MedRec: [id number] AcctNum: [id number] Prepared: Anjana Jul 30, 2016 17:12 by Interface Page 4 of 4 pMD MTDD
[2016-07-30 11:43] LABS: #Basophils 0.1 thou/uL (0.0-0.2); #Eosinphils 0.1 thou/uL (0.0-0.7); #Lymphocytes 1.3 thou/uL (1.20-3.40); #Monocytes 0.4 thou/uL (0.11-0.59); #Neutrophils 6.1 thou/uL (1.40-6.50); %Basophils 0.8 % (0.0-1.0); %Eosinophils 1.6 % (0.0-10.0); %Lymphocytes 16.7 % (21.0-51.0); %Monocytes 4.6 % (0.0-10.0); Hematocrit 42.8 % (36.0-47.0); Mean Platelet Volume 7.4 fL (7.4-10.4); Red Blood Cell (RBC) Count 4.94 mill/uL (4.20-5.40)
[2016-07-30 11:56] LABS: Troponin I 0.118 ng/mL (< 0.028)
[2016-07-30 12:20] LABS: ALT (SGPT) 19 U/L (0-55); AST (SGOT) 28 U/L (5-34); Alkaline Phosphatase 67 U/L (40-150); Anion Gap 19 mmol/L (10-20); BUN (Urea Nitrogen) 31 mg/dL (9.8-20.1); Bilirubin, Total 0.3 mg/dL (0.2-1.2); CK (CPK) 292 U/L (29-168); Calc. Creatinine Clearance 0 mL/min (70-130); Calcium 9.4 mg/dL (7.8-10.44); Carbon Dioxide 21 mmol/L (23-31); Chloride 99 mmol/L (98-107); Estimated GFR-MDRD 34; Globulin 5.1 g/dL (2.4-3.5); Lipase 86 U/L (8-78); Protein, Total 8.3 g/dL (5.8-8.1)
--- NOTE | 2016-07-30 12:32 | RAD ---
PORTABLE AP CHEST XRAY: DATE: 07/30/16. HISTORY: Altered mental status. COMPARISON: 04/24/13. FINDINGS: The cardiac silhouette and bronchovascular markings are accentuated by the shallow depth of inspirat ion and portable technique of the exam. The lungs are clear. There has been no interval change fro m the prior exam. IMPRESSION: No acute cardiopulmonary process. POS: [facility]
[2016-07-30] MEDS ORDERED: Enoxaparin Sodium 80 MG/0.8 ML SYRINGE ONE (15:17)
== END 2016-07-30 16:45 | disposition short-term general hospital (02) ==
LOC: NAV ERS 10:33
DX: I26.99 Other pulmonary embolism without acute cor pulmonale (principal); I10 Essential (primary) hypertension; E11.9 Type 2 diabetes mellitus without complications
CPT/HCPCS: 36416; 71010; 80053; 82553; 83690; 83880; 84484; 85025; 85379; 93005; 96372; 36415-59; J1650; J7050

== ENCOUNTER 2016-08-15 10:58 | Outpatient (CLI) | payer MEDICARE, BC ==
[2016-08-15 11:46] LABS: Prothrombin Time 29.3 SEC (12.0-14.7)
== END 2016-08-15 10:59 | disposition home or self-care (01) ==
LOC: NAV LAB 10:58
PROVIDERS: ATTEND Nurse Practitioner
DX: I26.09 Other pulmonary embolism with acute cor pulmonale (principal)
CPT/HCPCS: 36415; 85610

== ENCOUNTER 2016-08-22 10:07 | Outpatient (CLI) | payer MEDICARE, BC ==
[2016-08-22 11:14] LABS: Prothrombin Time 31.5 SEC (12.0-14.7)
== END 2016-08-22 10:08 | disposition home or self-care (01) ==
LOC: NAV LAB 10:07
PROVIDERS: ATTEND Nurse Practitioner
DX: I26.09 Other pulmonary embolism with acute cor pulmonale (principal)
CPT/HCPCS: 36415; 85610

== ENCOUNTER 2016-08-29 10:21 | Outpatient (CLI) | payer MEDICARE, BC ==
[2016-08-29 12:08] LABS: Prothrombin Time 31.8 SEC (12.0-14.7)
== END 2016-08-29 10:22 | disposition home or self-care (01) ==
LOC: NAV ERS 10:21
PROVIDERS: ATTEND Nurse Practitioner
DX: I26.09 Other pulmonary embolism with acute cor pulmonale (principal)
CPT/HCPCS: 36415; 85610

== ENCOUNTER 2016-09-12 11:06 | Outpatient (CLI) | payer MEDICARE, BC ==
[2016-09-12 11:56] LABS: INR-International Normal Ratio 2.6; Prothrombin Time 29.1 SEC (12.0-14.7)
[2016-09-12 12:30] LABS: Follow-up Coag Comp? YES; Follow-up Result - Coag REPORT FAXED
== END 2016-09-12 11:07 | disposition home or self-care (01) ==
LOC: NAV LAB 11:06
PROVIDERS: ATTEND Nurse Practitioner
DX: I26.09 Other pulmonary embolism with acute cor pulmonale (principal)
CPT/HCPCS: 36415; 85610

== ENCOUNTER 2016-09-26 10:57 | Outpatient (CLI) | payer MEDICARE, BC ==
[2016-09-26 11:44] LABS: Prothrombin Time 23.3 SEC (12.0-14.7)
[2016-09-26 12:02] LABS: Follow-up Coag Comp? YES; Follow-up Result - Coag REPORT FAXED
== END 2016-09-26 10:58 | disposition home or self-care (01) ==
LOC: NAV LAB 10:57
PROVIDERS: ATTEND Nurse Practitioner
DX: I26.99 Other pulmonary embolism without acute cor pulmonale (principal)
CPT/HCPCS: 36415; 85610

== ENCOUNTER 2016-10-17 10:57 | Outpatient (CLI) | payer MEDICARE, BC ==
[2016-10-17 11:20] LABS: Prothrombin Time 22.9 SEC (12.0-14.7)
[2016-10-17 11:34] LABS: Follow-up Coag Comp? YES; Follow-up Result - Coag REPORT FAXED
== END 2016-10-17 10:58 | disposition home or self-care (01) ==
LOC: NAV LAB 10:57
PROVIDERS: ATTEND Nurse Practitioner
DX: I26.99 Other pulmonary embolism without acute cor pulmonale (principal)
CPT/HCPCS: 85610

== ENCOUNTER 2016-11-14 09:43 | Outpatient (CLI) | payer MEDICARE, BC ==
[2016-11-14 10:12] LABS: INR-International Normal Ratio 2.2; Prothrombin Time 25.1 SEC (12.0-14.7)
== END 2016-11-14 09:44 | disposition home or self-care (01) ==
LOC: NAV LAB 09:43
PROVIDERS: ATTEND Nurse Practitioner
DX: I26.99 Other pulmonary embolism without acute cor pulmonale (principal)
CPT/HCPCS: 36415; 85610

== ENCOUNTER 2016-12-12 15:19 | Outpatient (CLI) | payer MEDICARE, BC ==
[2016-12-12 16:15] LABS: INR-International Normal Ratio 1.7; Prothrombin Time 20.2 SEC (12.0-14.7)
== END 2016-12-12 15:20 | disposition home or self-care (01) ==
LOC: NAV LAB 15:19
PROVIDERS: ATTEND Nurse Practitioner
DX: I26.99 Other pulmonary embolism without acute cor pulmonale (principal)
CPT/HCPCS: 85610

== ENCOUNTER 2016-12-25 09:40 | Outpatient (CLI) | payer MEDICARE, BC ==
[2016-12-25 11:21] LABS: INR-International Normal Ratio 1.5; Prothrombin Time 18.2 SEC (12.0-14.7)
[2016-12-25 11:27] LABS: Follow-up Coag Comp? YES; Follow-up Result - Coag REPORT FAXED
== END 2016-12-25 09:41 | disposition home or self-care (01) ==
LOC: NAV LAB 09:40
PROVIDERS: ATTEND Nurse Practitioner
DX: I26.99 Other pulmonary embolism without acute cor pulmonale (principal)
CPT/HCPCS: 36415; 85610

== ENCOUNTER 2017-01-08 10:34 | Outpatient (CLI) | payer MEDICARE, BC ==
[2017-01-08 10:59] LABS: INR-International Normal Ratio 2.1; Prothrombin Time 23.8 SEC (12.0-14.7)
[2017-01-08 11:19] LABS: Follow-up Coag Comp? YES; Follow-up Result - Coag REPORT FAXED
== END 2017-01-08 10:35 | disposition home or self-care (01) ==
LOC: NAV LAB 10:34
PROVIDERS: ATTEND Nurse Practitioner
DX: I26.99 Other pulmonary embolism without acute cor pulmonale (principal)
CPT/HCPCS: 36415; 85610

== ENCOUNTER 2017-01-22 10:21 | Outpatient (CLI) | payer MEDICARE, BC ==
[2017-01-22 11:34] LABS: INR-International Normal Ratio 2.4
[2017-01-22 14:35] LABS: Follow-up Coag Comp? YES; Follow-up Result - Coag REPORT FAXED
== END 2017-01-22 10:22 | disposition home or self-care (01) ==
LOC: NAV LAB 10:21
PROVIDERS: ATTEND Nurse Practitioner
DX: I26.99 Other pulmonary embolism without acute cor pulmonale (principal)
CPT/HCPCS: 36415; 85610

== ENCOUNTER 2017-02-12 10:10 | Outpatient (CLI) | payer MEDICARE, BC ==
[2017-02-12 12:49] LABS: INR-International Normal Ratio 3.4; Prothrombin Time 36.3 SEC (12.0-14.7)
[2017-02-12 14:02] LABS: Follow-up Coag Comp? YES; Follow-up Result - Coag REPORT FAXED
== END 2017-02-12 10:11 | disposition home or self-care (01) ==
LOC: NAV LAB 10:10
PROVIDERS: ATTEND Nurse Practitioner
DX: I26.99 Other pulmonary embolism without acute cor pulmonale (principal)
CPT/HCPCS: 36415; 85610

== ENCOUNTER 2017-02-26 10:38 | Outpatient (CLI) | payer MEDICARE, BC ==
[2017-02-26 11:13] LABS: Prothrombin Time 23.5 SEC (12.0-14.7)
[2017-02-26 11:40] LABS: Follow-up Coag Comp? YES; Follow-up Result - Coag REPORT FAXED
== END 2017-02-26 10:39 | disposition home or self-care (01) ==
LOC: NAV LAB 10:38
PROVIDERS: ATTEND Nurse Practitioner
DX: Z51.81 Encounter for therapeutic drug level monitoring (principal); I26.99 Other pulmonary embolism without acute cor pulmonale; Z79.01 Long term (current) use of anticoagulants
CPT/HCPCS: 36415; 85610

== ENCOUNTER 2017-03-12 10:21 | Outpatient (CLI) | payer MEDICARE, BC ==
[2017-03-12 10:46] LABS: INR-International Normal Ratio 2.1; Prothrombin Time 24.1 SEC (12.0-14.7)
== END 2017-03-12 10:22 | disposition home or self-care (01) ==
LOC: NAV LAB 10:21
PROVIDERS: ATTEND Nurse Practitioner
DX: I26.99 Other pulmonary embolism without acute cor pulmonale (principal)
CPT/HCPCS: 36415; 85610

== ENCOUNTER 2017-07-22 11:17 | Emergency (ER) | payer MEDICARE, BC ==
[2017-07-22] MEDS ORDERED: Sodium Chloride 0.9% 500 ML ONE (12:02)
[2017-07-22 12:21] LABS: #Basophils 0.1 thou/uL (0.0-0.2); #Eosinphils 0.2 thou/uL (0.0-0.7); #Lymphocytes 1.6 thou/uL (1.20-3.40); #Monocytes 0.4 thou/uL (0.11-0.59); #Neutrophils 3.5 thou/uL (1.40-6.50); %Basophils 1.7 % (0.0-1.0); %Eosinophils 2.8 % (0.0-10.0); %Lymphocytes 27.3 % (21.0-51.0); %Monocytes 7.5 % (0.0-10.0); %Neutrophils 60.8 % (42.0-75.0); Hemoglobin 12.9 g/dL (12.0-16.0); Mean Corpuscular HGB CONC 30.8 g/dL (32.0-36.0); Mean Corpuscular Hemoglobin 25.1 pg (27.0-31.0); Mean Corpuscular Volume 81.6 fl (81.0-99.0); Mean Platelet Volume 8.6 fL (7.4-10.4); Platelet Count 196 thou/uL (130-400); RBC Distribution Width 13.3 % (11.5-14.5); Red Blood Cell (RBC) Count 5.14 mill/uL (4.20-5.40); White Blood Cell (WBC) Count 5.8 thou/uL (4.8-10.8)
[2017-07-22 12:28] LABS: INR-International Normal Ratio 1.6; PTT 32.3 SEC (22.9-36.1); Prothrombin Time 19.4 SEC (12.0-14.7)
[2017-07-22 12:29] LABS: D-Dimer Test 0.48 *mcg/mL (0.27-0.43)
[2017-07-22 12:38] LABS: ALT (SGPT) 15 U/L (8-55); AST (SGOT) 18 U/L (5-34); Albumin 3.5 g/dL (3.4-4.8); Alkaline Phosphatase 85 U/L (40-150); Anion Gap 14 mmol/L (10-20); BUN (Urea Nitrogen) 25 mg/dL (9.8-20.1); Bilirubin, Total 0.3 mg/dL (0.2-1.2); CKMB 2.2 ng/mL (0-6.6); Calc. Creatinine Clearance 0 mL/min (70-130); Calcium 9.6 mg/dL (7.8-10.44); Carbon Dioxide 25 mmol/L (23-31); Chloride 100 mmol/L (98-107); Estimated GFR-MDRD 47; Globulin 4.7 g/dL (2.4-3.5); Glucose 131 mg/dL (83-110); Potassium 4.3 mmol/L (3.5-5.1); Protein, Total 8.2 g/dL (6.0-8.3); Sodium 135 mmol/L (136-145); Troponin I Less than 0.010 ng/mL (< 0.028)
[2017-07-22 12:54] LABS: Bilirubin Negative (Negative); Blood, Urine Small (Negative); Clarity Clear (Clear); Glucose, Urine (Dipstick) Negative (Negative); Leukocyte Negative (Negative); Nitrite Negative (Negative); Protein, Urine (Dipstick) > or equal to 300 mg/dL (Neg-Trace); Specific Gravity, Urine 1.025 (1.005-1.030); Urobilinogen 0.2 mg/dL (0.2-1.0)
[2017-07-22 12:58] LABS: Bacteria/HPF Rare-Few HPF (None Seen); RBC/HPF 0-3 HPF (0-3); WBC/HPF 0-3 HPF (0-3)
[2017-07-22] MEDS ORDERED: Sucralfate 1 GM TAB PO SCH (13:45)
== END 2017-07-22 13:27 | disposition home or self-care (01) ==
LOC: NAV ERS 11:17
DX: I10 Essential (primary) hypertension (principal); K21.9 Gastro-esophageal reflux disease without esophagitis; R53.1 Weakness; E11.9 Type 2 diabetes mellitus without complications; M10.9 Gout, unspecified; M19.90 Unspecified osteoarthritis, unspecified site; Z79.4 Long term (current) use of insulin; Z79.899 Other long term (current) drug therapy; Z79.01 Long term (current) use of anticoagulants
CPT/HCPCS: 36416; 80053; 81003; 81015; 82553; 84484; 85025; 85379; 85610; 85730; 93005; 96360; J7050

== ENCOUNTER 2019-06-06 02:58 | Emergency (ER) | payer MEDICARE, BC ==
[2019-06-06] MEDS ORDERED: Lidocaine 1% (PF) 30 ML VIAL ONE (03:15)
[2019-06-06] MEDS ORDERED: Adacel (T-DAP) 0.5 ML SYRINGE ONE ×2 (03:21→03:31)
[2019-06-06] MEDS ORDERED: Bacitracin 1 PK ONE (03:21)
== END 2019-06-06 03:40 | disposition home or self-care (01) ==
LOC: NAV ERS 02:58
DX: S61.012A Laceration without foreign body of left thumb without damage to nail, initial encounter (principal); E11.9 Type 2 diabetes mellitus without complications; M10.9 Gout, unspecified; M19.90 Unspecified osteoarthritis, unspecified site; Z86.711 Personal history of pulmonary embolism; Z79.01 Long term (current) use of anticoagulants; Z79.899 Other long term (current) drug therapy; W45.8XXA Other foreign body or object entering through skin, initial encounter
CPT/HCPCS: 12001; 90471; 90715; J2001

== ENCOUNTER 2019-06-25 12:02 | Emergency (ER) | payer MEDICARE, BC ==
--- NOTE | 2019-06-25 12:47 | RAD ---
XR Hand Lt 3 View STANDARD: 06/25/2019 12:28 PM CLINICAL INDICATION: Left hand pain; left index finger MCP joint pain COMPARISON: None. FINDINGS: Bones: No acute osseous abnormality. Joints: There is scattered IP osteoarthrosis. Soft Tissue: Soft tissues are normal appearing. IMPRESSION: No acute osseous abnormality.. Scattered left hand osteoarthrosis
== END 2019-06-25 13:15 | disposition home or self-care (01) ==
LOC: NAV ERS 12:02
DX: M79.645 Pain in left finger(s) (principal); S61.012D Laceration without foreign body of left thumb without damage to nail, subsequent encounter; M10.9 Gout, unspecified; I10 Essential (primary) hypertension; M19.90 Unspecified osteoarthritis, unspecified site; E11.9 Type 2 diabetes mellitus without complications; Z86.711 Personal history of pulmonary embolism; Z79.899 Other long term (current) drug therapy; Z79.4 Long term (current) use of insulin; Z79.01 Long term (current) use of anticoagulants; W45.8XXD Other foreign body or object entering through skin, subsequent encounter

== ENCOUNTER 2024-07-27 13:46 | Emergency (ER) | payer MEDICARE ==
[2024-07-27] MEDS ORDERED: Colchicine 0.6 MG TAB ONE (15:53)
== END 2024-07-27 16:10 | disposition home or self-care (01) ==
LOC: NAV ERS 13:46
DX: M10.9 Gout, unspecified (principal); E11.9 Type 2 diabetes mellitus without complications; I10 Essential (primary) hypertension
CPT/HCPCS: 99283

== ENCOUNTER 2025-04-21 15:00 | Outpatient (CLI) | payer MEDICARE ==
[2025-04-21 18:46] LABS: INR-International Normal Ratio 2.6; Prothrombin Time 27.8 sec (12.0-14.7)
== END 2025-04-21 15:01 | disposition home or self-care (01) ==
LOC: NAV LAB 15:00
PROVIDERS: ATTEND Emergency Medicine
DX: I26.02 Saddle embolus of pulmonary artery with acute cor pulmonale (principal)
CPT/HCPCS: 36415; 85610